=== PATIENT | female | born 1940 | race Caucasian/White ===

== ENCOUNTER 2016-09-04 11:48 | Inpatient (IN) | payer OTHER ==
[~2016-09-04] VITALS: Ht 160 cm; Wt 77.8 kg
[~2016-09-04 11:48] MED LIST: ALTOPREV20 MG PO; AMLODIPINE BESY10 MG PO; AMLODIPINE BESYL5 MG PO; ATENOLOL100 MG PO; BLOOD PRESSURE1 EA11 MC; CALCIUM 500 +1 EAC2 PO; CYMBALTA60 MG PO; DOLOPHINE HCL10 MG PO; DULCOLAX5 MG PO; HIGH POTENCY C600 MG PO; LIPITOR40 MG PO; LISINOPRIL40 MG PO; MELOXICAM15 MG PO; METHADONE5 MG PO; MIRTAZAPINE7.5 MG PO; VITAMIN D400 UNIT PO; XANAX0.25 MG PO; ZANTAC300 MG PO
[2016-09-04 12:37] LABS: HEMATOCRIT 44.1 % (36.0-46.0); MCH 29.9 PG (29.0-34.0); MCHC 33.6 G/DL (30.0-36.0); MCV 89.1 FL (83-99); MEAN PLAT.VOLUME 9.7 uM^3 (9.5-12.4); PLATELET COUNT 222 K/uL (156-360); RBC DIS.WIDTH-CV 14.4 % (11.8-14.6); RBC DIS.WIDTH-SD 45.2 % (39-53); RED BLOOD COUNT 4.95 M/uL (3.80-5.20); WHITE BLOOD COUNT 15.6 K/uL (4.1-10.2)
[2016-09-04 12:47] LABS: CHLORIDE 102 mEq/L (99-109); POTASSIUM 3.9 mEq/L (3.7-5.4); SODIUM 139 mEq/L (136-147)
[2016-09-04 12:48] LABS: GLUCOSE 107 mg/dL (70-99)
[2016-09-04 12:50] LABS: ANION GAP 15 MEQ/L (2-14)
[2016-09-04 12:52] LABS: GFR ESTIMATE (CALCULATED) 29 mL/min/
[2016-09-04 12:53] LABS: UREA NITROGEN (BUN) 31 mg/dL (9-23)
[2016-09-04 13:27] LABS: TROP-I INTERPRETATION INDETERMINATE; TROPONIN-I 0.34 ng/mL (0.0-0.30)
[2016-09-04 14:17] LABS: D-DIMER ELISA > 4.00 mg/L FEU (< 0.57)
[2016-09-04 14:24] LABS: TROP-I INTERPRETATION INDETERMINATE; TROPONIN-I 0.32 ng/mL (0.0-0.30)
[2016-09-04] MEDS ORDERED: RANITIDINE HCL300 MG PO (15:44)
[2016-09-04] MEDS ORDERED: VITAMIN D400 UNI1 PO (15:44)
[2016-09-04] MEDS ORDERED: COLON HEALTH PO (15:45)
[2016-09-04 17:11] LABS: INTER. NORMALIZED RATIO 1.1; PROTHROMBIN TIME 10.9 (9.2-11.2); PTT 27.8 (25-32)
[2016-09-04 20:30] VITALS: BP 141/69
[2016-09-04 23:19] VITALS: BP 107/65
[2016-09-05 04:47] VITALS: BP 119/75
[2016-09-05 06:56] LABS: HEMATOCRIT 36.6 % (36.0-46.0); MCH 30.3 PG (29.0-34.0); MCHC 33.3 G/DL (30.0-36.0); MEAN PLAT.VOLUME 9.8 uM^3 (9.5-12.4); PLATELET COUNT 176 K/uL (156-360); RBC DIS.WIDTH-CV 14.4 % (11.8-14.6); RBC DIS.WIDTH-SD 47.8 % (39-53); RED BLOOD COUNT 4.02 M/uL (3.80-5.20); WHITE BLOOD COUNT 9.2 K/uL (4.1-10.2)
[2016-09-05 07:18] LABS: ANION GAP 7 MEQ/L (2-14); CHLORIDE 106 MEQ/L (99-109); GLUCOSE 109 mg/dL (70-99); POTASSIUM 4.5 MEQ/L (3.7-5.4); SAMPLE HEMOLYSIS CHECK 0; SAMPLE ICTERIC CHECK 0; SAMPLE LIPEMIA CHECK 0; SODIUM 138 MEQ/L (136-147); UREA NITROGEN (BUN) 25 mg/dL (9-23)
[2016-09-05 07:26] LABS: GFR ESTIMATE (CALCULATED) 52 mL/min/
[2016-09-05 08:04] VITALS: BP 161/71
[2016-09-05 12:20] VITALS: BP 112/59
[2016-09-05 17:26] VITALS: BP 128/68
[2016-09-05 21:12] VITALS: BP 127/82
[2016-09-06 00:03] VITALS: BP 135/63
[2016-09-06 04:14] VITALS: BP 143/81
[2016-09-06 06:41] LABS: HEMATOCRIT 35.5 % (36.0-46.0); MCH 30.3 PG (29.0-34.0); MEAN PLAT.VOLUME 9.6 uM^3 (9.5-12.4); PLATELET COUNT 174 K/uL (156-360); RBC DIS.WIDTH-CV 14.5 % (11.8-14.6); RED BLOOD COUNT 3.86 M/uL (3.80-5.20); WHITE BLOOD COUNT 9.1 K/uL (4.1-10.2)
[2016-09-06 07:08] LABS: ANION GAP 5 MEQ/L (2-14); CHLORIDE 111 MEQ/L (99-109); GFR ESTIMATE (CALCULATED) > 59 mL/min/; GLUCOSE 123 mg/dL (70-99); MAGNESIUM 1.9 mg/dl (1.3-2.7); POTASSIUM 4.3 MEQ/L (3.7-5.4); SAMPLE HEMOLYSIS CHECK 0; SAMPLE ICTERIC CHECK 0; SAMPLE LIPEMIA CHECK 0; SODIUM 140 MEQ/L (136-147); UREA NITROGEN (BUN) 16 mg/dL (9-23)
[2016-09-06 09:21] VITALS: BP 124/85
[2016-09-06 11:36] VITALS: BP 115/69
[2016-09-06 16:28] VITALS: BP 146/79
[2016-09-06 20:30] VITALS: BP 174/78
[2016-09-07] VITALS (7 sets, daily range): BP systolic 117–144; BP diastolic 68–86
[2016-09-07 06:17] LABS: EOSINOPHIL (%) 0.4 % (0-5); HEMATOCRIT 35.1 % (36.0-46.0); IMMATURE GRANULOCYTE (%) 0.7 % (0.0-0.7); IMMATURE GRANULOCYTE COUNT 0.1 K/uL; LYMPHOCYTE COUNT 1.1 K/uL (1.0-2.8); MCH 29.4 PG (29.0-34.0); MCHC 32.2 G/DL (30.0-36.0); MCV 91.2 FL (83-99); MEAN PLAT.VOLUME 9.4 uM^3 (9.5-12.4); MONOCYTE COUNT 0.5 K/uL (0-0.8); NEUTROPHIL COUNT 7.2 K/uL (1.8-6.4); PLATELET COUNT 196 K/uL (156-360); RBC DIS.WIDTH-CV 14.3 % (11.8-14.6); RBC DIS.WIDTH-SD 47.3 % (39-53); RED BLOOD COUNT 3.85 M/uL (3.80-5.20); WHITE BLOOD COUNT 8.9 K/uL (4.1-10.2)
[2016-09-07 06:41] LABS: ANION GAP 5 MEQ/L (2-14); CHLORIDE 109 MEQ/L (99-109); GFR ESTIMATE (CALCULATED) > 59 mL/min/; GLUCOSE 97 mg/dL (70-99); MAGNESIUM 1.8 mg/dl (1.3-2.7); POTASSIUM 4.2 MEQ/L (3.7-5.4); SAMPLE HEMOLYSIS CHECK 0; SAMPLE ICTERIC CHECK 0; SAMPLE LIPEMIA CHECK 0; SODIUM 139 MEQ/L (136-147); UREA NITROGEN (BUN) 12 mg/dL (9-23)
[2016-09-08 04:35] VITALS: BP 105/77
[2016-09-08 07:15] VITALS: BP 111/66
[2016-09-08] MEDS ORDERED: XARELTO15 MG PO (11:00)
[2016-09-08 11:13] VITALS: BP 105/62
== END 2016-09-08 16:28 | disposition home or self-care (01) | DRG 176 ==
LOC: EME 11:48 → EDOF 14:38 → 4EAST 14:38
PROVIDERS: Emergency Medicine; Internal Medicine
DX: I26.99 Other pulmonary embolism without acute cor pulmonale (principal); N17.9 Acute kidney failure, unspecified; I82.4Z1 Acute embolism and thrombosis of unspecified deep veins of right distal lower extremity; I82.502 Chronic embolism and thrombosis of unspecified deep veins of left lower extremity; I10 Essential (primary) hypertension; E78.5 Hyperlipidemia, unspecified; Z87.891 Personal history of nicotine dependence; E66.9 Obesity, unspecified; E86.0 Dehydration; J44.9 Chronic obstructive pulmonary disease, unspecified; I27.2 Other secondary pulmonary hypertension; D68.59 Other primary thrombophilia; Z68.30 Body mass index [BMI] 30.0-30.9, adult; I95.9 Hypotension, unspecified
CPT/HCPCS: 71020; 78582; 80048; 83735; 84484; 85025; 85027; 85379; 85610; 85730; 93005; 93306; 93970; 99281; 99285; A9540; A9567; J7030

== ENCOUNTER → 2016-12-27 | Outpatient (CLI) | payer OTHER ==
[~2016-12-27] VITALS: Ht 154.9 cm; Wt 79.0 kg
[~2016-12-27] MED LIST changes: +AMLODIPINE BES2.5 MG PO; +COLON HEALTH PO; +ESCITALOPRAM OXA5 MG PO; +FLONASE16 G1 BOTH NARES; +RANITIDINE HCL300 M1 PO; +RANITIDINE HCL300 MG PO; +VITAMIN D400 UNI1 PO; +XANAX0.5 MG PO; +XARELTO15 MG PO; +XARELTO20 MG PO
[2016-12-27 13:28] VITALS: BP 123/58
== END | disposition home or self-care (01) ==
LOC: IVINF 12-26 11:00
DX: M81.0 Age-related osteoporosis without current pathological fracture (principal); Z88.8 Allergy status to other drugs, medicaments and biological substances
CPT/HCPCS: J3489

== ENCOUNTER → 2017-07-23 | Outpatient (CLI) | payer OTHER ==
[~2017-07-23] VITALS: Ht 154.9 cm; Wt 82.1 kg
[~2017-07-23] MED LIST changes: -LISINOPRIL40 MG PO; +SUPREP BOWEL P354 ML PO; +ZESTRIL20 MG PO; +ZOFRAN4 MG PO
== END | disposition home or self-care (01) ==
LOC: AMB 09:28
DX: Z12.11 Encounter for screening for malignant neoplasm of colon (principal); D12.2 Benign neoplasm of ascending colon; D12.3 Benign neoplasm of transverse colon; K63.5 Polyp of colon; K64.8 Other hemorrhoids; K21.9 Gastro-esophageal reflux disease without esophagitis; I10 Essential (primary) hypertension; E78.00 Pure hypercholesterolemia, unspecified; K58.9 Irritable bowel syndrome, unspecified; F17.210 Nicotine dependence, cigarettes, uncomplicated; E66.9 Obesity, unspecified; M81.0 Age-related osteoporosis without current pathological fracture; Z85.118 Personal history of other malignant neoplasm of bronchus and lung; Z86.711 Personal history of pulmonary embolism; Z90.49 Acquired absence of other specified parts of digestive tract; Z90.710 Acquired absence of both cervix and uterus; Z80.0 Family history of malignant neoplasm of digestive organs; Z82.49 Family history of ischemic heart disease and other diseases of the circulatory system; Z88.8 Allergy status to other drugs, medicaments and biological substances
CPT/HCPCS: 88305

== ENCOUNTER 2017-08-16 13:44 | Observation (INO) | payer OTHER ==
[~2017-08-16] VITALS: Ht 157.5 cm; Wt 78.8 kg
[2017-08-16 14:06] LABS: HEMOGLOBIN 12.1 G/DL (11.9-15.5); MCHC 32.7 G/DL (30.0-36.0); MCV 91.6 FL (83-99); PLATELET COUNT 338 K/uL (156-360); RBC DIS.WIDTH-CV 14.4 % (11.8-14.6); RBC DIS.WIDTH-SD 49.1 % (39-53); RED BLOOD COUNT 4.04 M/uL (3.80-5.20); WHITE BLOOD COUNT 10.3 K/uL (4.1-10.2)
[2017-08-16 14:14] LABS: CHLORIDE 104 mEq/L (99-109); SODIUM 139 mEq/L (136-147)
[2017-08-16 14:16] LABS: GLUCOSE 96 mg/dL (70-99)
[2017-08-16 14:20] LABS: CREATININE 0.9 mg/dL (0.6-1.3); GFR ESTIMATE (CALCULATED) > 59 mL/min/
[2017-08-16 14:21] LABS: UREA NITROGEN (BUN) 16 mg/dL (9-23)
[2017-08-16 14:26] LABS: TROP-I INTERPRETATION NEGATIVE; TROPONIN-I < 0.01 ng/mL (0.0-0.30)
[2017-08-16 15:24] LABS: INTER. NORMALIZED RATIO 1.1
[2017-08-16] MEDS ORDERED: AMLODIPINE BESYL5 MG PO (16:59)
[2017-08-16] MEDS ORDERED: RANITIDINE HCL300 MG PO (17:00)
[2017-08-16] MEDS ORDERED: LOVASTATIN20 MG PO (17:00)
[2017-08-16] MEDS ORDERED: LISINOPRIL20 MG PO (17:01)
[2017-08-16 18:29] VITALS: BP 181/82
[2017-08-16 19:15] VITALS: BP 130/83
[2017-08-17 00:31] VITALS: BP 108/59
[2017-08-17 05:52] LABS: HEMOGLOBIN 10.5 G/DL (11.9-15.5); MCH 29.1 PG (29.0-34.0); MCHC 31.8 G/DL (30.0-36.0); MCV 91.4 FL (83-99); PLATELET COUNT 343 K/uL (156-360); RBC DIS.WIDTH-CV 14.3 % (11.8-14.6); RBC DIS.WIDTH-SD 48.2 % (39-53); RED BLOOD COUNT 3.61 M/uL (3.80-5.20); WHITE BLOOD COUNT 8.7 K/uL (4.1-10.2)
[2017-08-17 06:18] LABS: CHLORIDE 104 MEQ/L (99-109); CREATININE 0.8 MG/DL (0.6-1.3); GFR ESTIMATE (CALCULATED) > 59 mL/min/; GLUCOSE 86 mg/dL (70-99); POTASSIUM 4.3 MEQ/L (3.7-5.4); SODIUM 141 MEQ/L (136-147); UREA NITROGEN (BUN) 12 mg/dL (9-23)
[2017-08-17 06:27] LABS: ATYPICAL LYMPHOCYTE 4.5 %; BURR CELLS 1+; EOSINOPHIL ABS CT 0; HEMATOLOGY COMMENT 1 SN; HYPOCHROMASIA 1+; LYMPHOCYTES 10.9 % (15.0-45.0); MACROCYTES 2+; MONOCYTES 4.6 % (0-9.0); PLAT.SUFFICIENCY ADEQUATE; POIKILOCYTOSIS 2+; POLYCHROMASIA 1+
[2017-08-17 11:18] VITALS: BP 110/87
[2017-08-17 19:00] VITALS: BP 130/68
[2017-08-17 23:48] VITALS: BP 128/72
[2017-08-18 04:47] VITALS: BP 132/68
[2017-08-18 07:45] VITALS: BP 132/66
[2017-08-18] MEDS ORDERED: OSELTAMIVIR PHO30 MG PO (09:35)
[2017-08-18] MEDS ORDERED: MUCINEX600 MG PO (09:36)
[2017-08-18] MEDS ORDERED: LEVAQUIN750 MG PO (10:09)
[2017-08-19] MEDS ORDERED: ALBUTEROL0.63 MG/3 IH (12:20)
== END 2017-08-18 13:10 | disposition home or self-care (01) ==
LOC: EME 13:44 → 5WEST 16:02 → EDOF 16:02 → ENRESERV 16:10 → 5WEST 17:51
PROVIDERS: Emergency Medicine; Internal Medicine
DX: J11.00 Influenza due to unidentified influenza virus with unspecified type of pneumonia (principal); J44.0 Chronic obstructive pulmonary disease with (acute) lower respiratory infection; R09.02 Hypoxemia; Z85.118 Personal history of other malignant neoplasm of bronchus and lung; E78.5 Hyperlipidemia, unspecified; I10 Essential (primary) hypertension; F41.9 Anxiety disorder, unspecified; K21.9 Gastro-esophageal reflux disease without esophagitis; Z86.718 Personal history of other venous thrombosis and embolism; Z86.711 Personal history of pulmonary embolism; Z92.21 Personal history of antineoplastic chemotherapy; Z87.891 Personal history of nicotine dependence; Z90.710 Acquired absence of both cervix and uterus; Z90.49 Acquired absence of other specified parts of digestive tract; Z79.891 Long term (current) use of opiate analgesic
CPT/HCPCS: 71046; 80048; 83605; 84484; 85025; 85027; 85610; 87040; 87449; 87502; 93005; 94640; 94640 76; 94799; 99202; 99281; 99285; G0378; J1650; J1956; J7040

== ENCOUNTER 2018-01-23 12:53 | Emergency (ER) | payer OTHER ==
[~2018-01-23] VITALS: Ht 160 cm; Wt 78.9 kg
[~2018-01-23 12:53] MED LIST changes: +ALBUTEROL0.63 MG/3 IH; +LEVAQUIN750 MG PO; +LISINOPRIL20 MG PO; +LOVASTATIN20 MG PO; +MUCINEX600 MG PO; +OSELTAMIVIR PHO30 MG PO
[2018-01-23 16:14] VITALS: BP 131/71
== END 2018-01-23 16:16 | disposition home or self-care (01) ==
LOC: EME 12:53
DX: H61.23 Impacted cerumen, bilateral (principal); H60.92 Unspecified otitis externa, left ear; Z87.891 Personal history of nicotine dependence; Z88.8 Allergy status to other drugs, medicaments and biological substances
CPT/HCPCS: 99281; 99284